=== PATIENT | female | born 1995 | race Caucasian/White ===

== ENCOUNTER 2020-09-02 19:26 | Emergency (ER) | payer BC ==
--- NOTE | 2020-09-02 20:07 | EDM.PDOC ---
ED HPI GENERAL MEDICAL PROBLEM - General Stated Complaint: BLOOD SUGAR Time Seen by Provider: 09/02/20 20:05 Source of Information: Reports: Patient History Limitations: Reports: No Limitations - History of Present Illness INITIAL COMMENTS - FREE TEXT/NARRATIVE: Paola complains of feeling shaky at about 5 pm. She reports feeling these symptoms when her sugar is low.She went to the [facility] and was sent here for further evaluation. She has been taking Gatorade feeling better Migraine headache Pain Score (Numeric/FACES): 3 - Related Data Allergies Allergy/AdvReac Type Severity Reaction Status Date / Time Penicillins Allergy Hives Verified 10/05/13 16:46 Home Meds: Home Meds SUMAtriptan succinate [Imitrex] 100 mg PO ASDIRECTED PRN 09/02/20 [History] Topiramate [Topamax] 25 mg PO DAILY 09/02/20 [History] Topiramate [Topamax] 100 mg PO BEDTIME 09/02/20 [History] buPROPion HCL [Wellbutrin Xl] 300 mg PO BEDTIME 09/02/20 [History] hydrOXYzine pamoate [Hydroxyzine Pamoate] 50 mg BID PRN 09/02/20 [History] ED ROS PEDIATRIC - Review of Systems Review Of Systems: Comprehensive ROS is negative, except as noted in HPI. ED EXAM, GENERAL (PEDS) - Physical Exam Exam: See Below Exam Limited By: No Limitations General Appearance: WD/WN, No Apparent Distress Nose Exam: Normal Inspection Mouth/Throat: Normal Inspection Head: Atraumatic Respiratory/Chest: No Respiratory Distress Cardiovascular: Normal Peripheral Pulses Neurological: Alert, Oriented, CN II-XII Intact Psychiatric: Normal Affect, Normal Mood Skin Exam: Warm Course - Vital Signs Last Recorded V/S: Last Vital Signs Temp 97.9 F 09/02/20 19:37 Pulse 79 09/02/20 19:37 Resp 18 09/02/20 19:37 BP 121/66 09/02/20 19:37 Pulse Ox 99 09/02/20 19:37 - Orders/Labs/Meds Orders: Active Orders 24 hr Category Date Time Status GLYCOSYLATED HEMOGLOBIN,HGBA1C [CHEM] Stat Lab 09/02/20 20:35 Received Labs: Laboratory Tests 09/02/20 09/02/20 09/02/20 Range/Units 19:37 20:35 20:35 WBC 7.1 (3.0-10.3) x10-3/uL RBC 4.04 (3.60-5.20) x10(6)uL Hgb 10.7 L (11.4-15.5) g/dL Hct 33.3 L (34.2-48.2) % MCV 82.3 (76.7-100.5) fL MCH 26.5 (23.9-33.9) pg MCHC 32.2 (31.9-34.8) g/dL RDW 14.5 (12.3-16.5) % Plt Count 299 (151-488) x10(3)uL MPV 9.0 (7.1-12.4) fL Neut % (Auto) 67.3 (30.8-76.2) % Lymph % (Auto) 18.9 (18.4-52.1) % Edmunds % (Auto) 8.4 (4.4-15.7) % Eos % (Auto) 4.5 (0.6-8.1) % Baso % (Auto) 0.9 (0.2-1.5) % Neut # (Auto) 4.8 (1.5-6.3) x10-3/uL Lymph # (Auto) 1.4 (1.0-4.4) x10-3/uL Edmunds # (Auto) 0.6 (0.3-1.0) x10-3/uL Eos # (Auto) 0.3 (0.0-0.8) x10-3/uL Baso # (Auto) 0.1 (0.0-0.1) x10-3/uL Sodium 142 (135-145) mmol/L Potassium 4.0 (3.5-5.3) mmol/L Chloride 108 (100-110) mmol/L Carbon Dioxide 23 (21-32) mmol/L BUN 17 (7-18) mg/dL Creatinine 1.0 (0.55-1.02) mg/dL Est Cr Clr Drug Dosing 78.73 mL/min Estimated GFR (MDRD) > 60 (>60) BUN/Creatinine Ratio 17.0 (9-20) Glucose 89 (80-116) mg/dL POC Glucose 104 (80-116) mg/dL Calcium 8.4 L (8.6-10.2) mg/dL Departure - Departure Time of Disposition: 21:07 Disposition: Home, Self-Care 01 Condition: Good Clinical Impression: Hypoglycemia - Discharge Information Sepsis Event Note (ED) - Focused Exam Vital Signs: Vital Signs Temp Pulse Resp BP Pulse Ox 09/02/20 19:37 97.9 F 79 18 121/66 99 - Problem List & Annotations (1) Hypoglycemia SNOMED Code(s): 130556142 Code(s): E16.2 - HYPOGLYCEMIA, UNSPECIFIED Status: Acute Current Visit: Yes - Problem List Review Problem List Initiated/Reviewed/Updated: Yes - My Orders Last 24 Hours: My Active Orders 09/02/20 20:35 GLYCOSYLATED HEMOGLOBIN,HGBA1C [CHEM] Stat - Assessment/Plan Last 24 Hours: My Active Orders 09/02/20 20:35 GLYCOSYLATED HEMOGLOBIN,HGBA1C [CHEM] Stat Plan: Labs look good. Push fluid. Improve diet.
[2020-09-02 21:06] LABS: HEMOGLOBIN A1C 5.3 % (<5.7)
== END 2020-09-02 21:25 | disposition home or self-care (01) ==
LOC: FB.ED 19:26
DX: E16.2 Hypoglycemia, unspecified (principal); Z88.0 Allergy status to penicillin
CPT/HCPCS: 36415; 80048; 82947; 83036; 85025; 99284

== ENCOUNTER 2021-03-15 21:22 | Emergency (ER) | payer BC | END 2021-03-15 23:05 | disposition home or self-care (01) | LOC: FB.ED 21:22 | DX: N92.6 Irregular menstruation, unspecified (principal); J45.909 Unspecified asthma, uncomplicated; E66.9 Obesity, unspecified; Z68.42 Body mass index [BMI] 45.0-49.9, adult; Z88.0 Allergy status to penicillin; Z79.899 Other long term (current) drug therapy | CPT/HCPCS: 36415; 85025; 99284 ==

== ENCOUNTER 2023-01-21 19:56 | Emergency (ER) | payer BC | END 2023-01-21 20:30 | disposition home or self-care (01) | LOC: FB.ED 19:56 | DX: O26.893 Other specified pregnancy related conditions, third trimester (principal); M25.561 Pain in right knee; M25.562 Pain in left knee; O99.213 Obesity complicating pregnancy, third trimester; Z68.43 Body mass index [BMI] 50.0-59.9, adult; Z88.0 Allergy status to penicillin; Z79.899 Other long term (current) drug therapy; Z87.891 Personal history of nicotine dependence; Z3A.36 36 weeks gestation of pregnancy; W00.0XXA Fall on same level due to ice and snow, initial encounter | CPT/HCPCS: 99283 ==

== ENCOUNTER 2024-03-21 20:11 | Emergency (ER) | payer MEDICAID ==
[2024-03-21] MEDS: Ondansetron 4 MG/2 ML SDV IM ONE (20:48)
== END 2024-03-21 21:53 | disposition home or self-care (01) ==
LOC: FB.ED 20:11
DX: O98.511 Other viral diseases complicating pregnancy, first trimester (principal); J10.1 Influenza due to other identified influenza virus with other respiratory manifestations; J05.0 Acute obstructive laryngitis [croup]; O21.9 Vomiting of pregnancy, unspecified; O13.1 Gestational [pregnancy-induced] hypertension without significant proteinuria, first trimester; Z88.0 Allergy status to penicillin; Z79.899 Other long term (current) drug therapy; Z3A.09 9 weeks gestation of pregnancy
CPT/HCPCS: 87428; 96372; 99284; J2405